=== PATIENT | female | born 1990 | race Caucasian/White ===

== ENCOUNTER 2016-07-04 19:02 | Emergency (ER) | payer OTHER ==
[2016-07-04 19:24] VITALS: BP 103/63; PULSE 107; TEMP 97.6; BMI 26.4
[2016-07-04] MEDS ORDERED: LACTULOSE 20 GM/30 ML UDC (FOR ORAL USE ONLY) PO ONE (20:46)
[2016-07-04] MEDS ORDERED: LACTULOSE 20 GM/30 ML UDC (FOR ORAL USE ONLY) ONE (20:50)
--- NOTE | 2016-07-04 20:51 | PDOC ---
History of Present Illness - General Chief Complaint: Constipation Stated Complaint: CONSTIPATION Time Seen by Provider: 07/04/16 20:28 History Source: Patient Exam Limitations: Language Barrier - History of Present Illness Initial Comments: 07/04/16 20:46 25 yo Female patient who is 24 weeks presents to ED c/o constipation x 4 days. Patient states she tried Milk of Magnesia with no relief. She reports vitamin use. No change in appetite, denies n/v/d, cough, fever, congestion, vaginal bleeding, diff breathing or any other complaints at this time. LNMP December/2015. She denies any other complaints at this time. Timing/Duration: other (4 days.) Severity: moderate Modifying Factors: worse with: cold therapy, eating, immobilization, medication , movement, rest, other Associated Symptoms: denies: denies symptoms, chest pain, cough, diaphoresis, fever/chills, headaches, loss of appetite, malaise, nausea/vomiting, rash, seizure, shortness of breath, syncope, weakness, other Past History - Travel Traveled outside of the country in the last 30 days: No Close contact w/someone who was outside of country & ill: No - Past Medical History Allergies/Adverse Reactions: Allergies Allergy/AdvReac Type Severity Reaction Status Date / Time No Known Allergies Allergy Verified 07/04/16 19:19 Home Medications: Ambulatory Orders Bisacodyl Suppository [Dulcolax Suppository -] 10 mg RC DAILY PRN #7 supp.rect 07/04/16 Mineral Oil Enema [Fleet Mineral Oil Rectal Enema] 133 ml RC DAILY PRN #5 bottle 07/04/16 Pnv95/Ferrous Fumarate/FA [ Caplet] 1 each PO DAILY 07/04/16 Other medical history: denies - Reproductive History (#): 2 Para: 0 Spontaneous : 1 - Psycho/Social/Smoking Cessation Hx Suicidal Ideation: No Smoking History: Never smoked Hx Alcohol Use: No Drug/Substance Use Hx: No Review of Systems - Review of Systems Able to Perform ROS?: Yes Is the patient limited Cambodian proficient: Yes Respiratory: No: Cough, Shortness of Breath Cardiac (ROS): No: Chest Pain ABD/GI: Yes: Constipated. No: Diarrhea, Nausea, Poor Appetite, Poor Fluid Intake, Vomiting : No: Burning, Dysuria Musculoskeletal: Yes: Back Pain Integumentary: No: Bruising, Rash Neurological: No: Headache All Other Systems: Reviewed and Negative *Physical Exam - Vital Signs Last Vital Signs Temp Pulse Resp BP Pulse Ox 97.6 F 107 H 18 103/63 100 07/04/16 19:20 07/04/16 19:20 07/04/16 19:20 07/04/16 19:20 07/04/16 19:20 - Physical Exam General Appearance: Yes: Nourished, Appropriately Dressed HEENT: positive: EOMI, JAYESH, Normal ENT Inspection, Normal Voice, Symmetrical Neck: positive: Trachea midline, Supple Respiratory/Chest: positive: Lungs Clear, Normal Breath Sounds Cardiovascular: positive: Regular Rhythm, Regular Rate Gastrointestinal/Abdominal: positive: Normal Bowel Sounds, Soft, Distended, Other () Lymphatic: negative: Adenopathy Musculoskeletal: positive: Normal Inspection. negative: CVA Tenderness Extremity: positive: Normal Capillary Refill, Normal Inspection, Normal Range of Motion Integumentary: positive: Normal Color, Dry, Warm Neurologic: positive: tester rocket engine II-XII NML intact, Fully Oriented, Alert, Normal Mood/ Affect, Normal Response, Motor Strength 5/5 Medical Decision Making - Medical Decision Making 07/04/16 23:35 Patient without BM after lactulose PO. Will d/c home with enema and suppository. Patient to f/u with PMD or PALLIATIVE CARE PHYSICIAN. *DC/Admit/Observation/Transfer Diagnosis at time of Disposition: Constipated - Discharge Dispostion Disposition: HOME Condition at time of disposition: Stable Admit: No - Prescriptions Prescriptions: Bisacodyl Suppository [Dulcolax Suppository -] 10 mg RC DAILY PRN #7 supp.rect PRN Reason: Constipation Mineral Oil Enema [Fleet Mineral Oil Rectal Enema] 133 ml RC DAILY PRN #5 bottle PRN Reason: Constipation - Patient Instructions Printed Discharge Instructions: Constipation Additional Instructions: FOLLOW UP WITH YOUR PRIMARY CARE PROVIDER THIS WEEK, OR YOUR PALLIATIVE CARE PHYSICIAN. CALL TO SCHEDULE APPOINTMENT. TAKE MEDICATIONS PRESCRIBED. Print Language: WELSH
--- NOTE | 2016-07-04 21:30 | PDOC ---
*Physical Exam - Vital Signs Last Vital Signs Temp Pulse Resp BP Pulse Ox 97.6 F 107 H 18 103/63 100 07/04/16 19:20 07/04/16 19:20 07/04/16 19:20 07/04/16 19:20 07/04/16 19:20 ED Treatment Course - Medications Given in the ED: ED Medications Discontinued Medications Generic Name Dose Route Start Last Admin Trade Name Freq PRN Reason Stop Dose Admin Lactulose 20 gm 07/04/16 20:46 07/04/16 20:52 Cephulac (Oral Use) PO 07/04/16 20:47 20 gm ONCE ONE Administration Medical Decision Making - Medical Decision Making 07/04/16 21:30 agree with care from DANIEL Cho *DC/Admit/Observation/Transfer Diagnosis at time of Disposition: Constipated - Prescriptions Prescriptions: Bisacodyl Suppository [Dulcolax Suppository -] 10 mg RC DAILY PRN #7 supp.rect PRN Reason: Constipation Mineral Oil Enema [Fleet Mineral Oil Rectal Enema] 133 ml RC DAILY PRN #5 bottle PRN Reason: Constipation - Patient Instructions Printed Discharge Instructions: Constipation Additional Instructions: FOLLOW UP WITH YOUR PRIMARY CARE PROVIDER THIS WEEK, OR YOUR FIELD CASHIER. CALL TO SCHEDULE APPOINTMENT. TAKE MEDICATIONS PRESCRIBED. Print Language: IRAQI
== END 2016-07-04 23:55 | disposition home or self-care (01) ==
LOC: JER 19:02
DX: O26.892 Other specified pregnancy related conditions, second trimester (principal); K59.00 Constipation, unspecified; Z3A.24 24 weeks gestation of pregnancy
CPT/HCPCS: 99282-25

== ENCOUNTER 2016-10-24 20:05 | Inpatient (IN) | payer OTHER ==
[2016-10-24] MEDS ORDERED: DINOPROSTONE 10 MG VAGINAL SUPPOSITORY VG ONE (20:30)
[2016-10-24 21:25] LABS: BASOPHIL 0.3 % (0-2.0); EOSINOPHIL 0.2 % (0-4.5); MCH 26.8 pg (25.7-33.7); MCHC 31.8 g/dl (32.0-36.0); MEAN CELL VOLUME 84.4 fl (80-96); MEAN PLT VOLUME 7.2 fl (7.5-11.1); NEUTROPHILS 61.3 % (42.8-82.8); PLATELET COUNT 238 K/MM3 (134-434); RDW 15.8 % (11.6-15.6); WHITE BLOOD COUNT 7.5 K/mm3 (4.0-10.0)
[2016-10-24 21:40] LABS: CALCIUM 8.4 mg/dL (8.5-10.1); CREATININE 0.5 mg/dL (0.55-1.02)
[2016-10-24 21:48] LABS: INR 0.9 (0.82-1.09); PROTHROMBIN TIME (PATIENT) 9.9 SEC (9.98-11.88)
[2016-10-24 21:50] LABS: ACTIVATED PTT 25.7 SECONDS (26.9-34.4)
[2016-10-24 21:58] VITALS: BMI 29.0
--- NOTE | 2016-10-25 00:05 | HP ---
Admitting History and Physical - Admission Chief Complaint: IOL History of Present Illness: 26 y/o P0 at 41 weeks for IOL. [facility]OL at 40.3 and declined. Pt asking for IOL today. She is GBS neg, ct-neg, hiv neg, quant neg. EFW is 8.5 lbs. 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: Alzheimer's, CVA, Dementia, Migraine, Multiple Sclerosis, Peripheral Neuropathy, Parkinson's, Seizure, Syncope, TIA, Vertigo, Other Cardiovascular: No: AFIB, Aneurysm, Aortic Insufficiency, Aortic Stenosis, CAD, CHF, Deep Vein Thrombosis, HTN, Hyperlipdemia, PR, Mitral Insufficiency, Mitral Stenosis, Murmur, Pulmonary Hypertension, Other Pulmonary: No: Asthma, Bronchitis, Cancer, COPD, O2 Dependent, Pneumonia, Previously Intubated, Pulmonary Embolus, Pulmonary Fibrosis, Sleep Apnea, Other Gastrointestinal: No: Ascites, Cancer, Constipation, Crohn's Disease, Diverticulitis, Diverticulosis, Esophageal Varices, Gastritis, GERD, GI Bleed, Hemorrhoids, Hiatal Hernia, Inflamatory Bowel Disease, Irritable Bowel Disease, Pancreatitis, Peptic Ulcer Disease, Ulcerative Colitis, Other Reproductive: No: Ectopic , Endometriosis, Fibroids, PID, Polycystic Ovary Syndrome, Postmenopausal, Other ...LMP: 07/28/15 ...: Yes ...: 3 ...Para: 0 Heme/Onc: No: Anemia, B12 Deficiency, Bleeding Disorder, Cancer, Current Chemotherapy, Current Radiation Therapy, Hemochromatosis, Hypercoaguable State, Myeloproliferative Synd, Sickle Cell Disease, Sickle Cell Trait, Thrombocytopenia, Other Infectious Disease: No: AIDS, C-Diff, Herpes Zoster, HIV, MRSA, STD's, Tuberculosis, VREF, Other Psych: No: Addictions, Anxiety, Bipolar, Depression, Panic, Psychosis, Schizophrenia, Other Musculoskeletal: No: Bursitis, Chronic low back pain, Hemiparesis, Hemiplegia, Osteoarthritis, Paraplegia, Other Rheumatology: No: Fibromyalgia, Gout, Lupus, Rheumatoid Arthritis, Sarcoidosis, Vasculitis, Other ENT: No: Allergic Rhinitis, Sinusitis, Other Endocrine: No: [place]'s Disease, [place]'s Disease, Diabetes Insipidus, Diabetes Mellitus, Hyperparathyroidism, Hyperthyroidism, Hypothyroidism, Osteopenia, SIADH, Other Dermatology: No: Basal Cell, Cellulitis, Eczema, Melanoma, Psoriasis, Squamous Cell, Other - Past Surgical History Past Surgical History: No: None, AAA Repair, AICD, Amputation, Appendectomy, Arthrosocopy, AV Fistula/Graft, Bariatric Surgery, Breast Biopsy, Bypass, CABG, Carotid Endarterectomy, Cataract Removal, Cholecystectomy, Colectomy, Colonoscopy, Colostomy, Craniotomy, , Cystectomy, Hernia Repair, Hysterectomy, Ileal Conduit, Ileosotomy, Joint Replacement, Kidney Transplant, Laminectomy, Liver Transplant, Mastectomy, Nephrectomy, Oopherectomy, Orchiectomy, Permanent Pacemaker, Prostatectomy, Splenectomy, Stent, Thoracotomy , TURP, Tonsillectomy, Tubal Ligation, Upper Endoscopy, Valve Replacement, Vasectomy, Vein Stripping/Ligation - Advance Directives Advance Directives: No: Living Will, Health Care Proxy, DNR, Organ Donor, Tissue Donor, MOLST - Smoking History Smoking history: Never smoked - Alcohol/Substance Use Hx Alcohol Use: No History of Substance Use: denies: None, Cocaine, Heroin, Marijuana, Prescription , Tranquilizers - Social History Usual Living Arrangement: No: Alone, With Spouse, With Parent, With Significant Other, With Child, Assisted Living, [facility], Other Home Medications - Allergies Allergies/Adverse Reactions: Allergies Allergy/AdvReac Type Severity Reaction Status Date / Time No Known Allergies Allergy Verified 07/04/16 19:19 - Home Medications Home Medications: Ambulatory Orders Pnv95/Iron Fum/Folic Acid [ Caplet] 1 each PO DAILY 07/04/16 Review of Systems - Review of Systems Constitutional: denies: No Symptoms, Chills, Diaphoresis, Fever, Lethargy, Loss of Appetite, Malaise, Night Sweats, Unintentional Wgt. Loss, Weakness, Other Eyes: denies: No Symptoms, Blind Spots, Blurred Vision, Double Vision, Eye Pain , Floaters, Photophobia, Recent Change in Vision, Other HENT: denies: No Symptoms, Difficult Swallowing, Ear Discharge, Ear Pain, Epistaxis, Gingival Bleeding, Hearing Loss, Mouth Swelling, Nasal Congestion, Ocular Prosthesis, Throat Pain, Toothache, Ringing in Ears, Other Neck: denies: No Symptoms, Decreased ROM, Lumps, Pain on Movement, Stiffness, Swollen Glands, Tenderness, Other Cardiovascular: denies: No Symptoms, Chest Pain, Edema, Palpitations, Shortness of Breath, Other Respiratory: denies: No Symptoms, Cough, Exercise Intolerance, Hemoptysis, Orthopnea, PND, Snoring, SOB, SOB on Exertion, Wheezing, Other Gastrointestinal: denies: No Symptoms, Abdominal Pain, Bloating, Constipation, Diarrhea, Dysphagia, Indigestion, Melena, Nausea, Rectal Bleeding, Vomiting, Vomiting Blood, Other Genitourinary: denies: No Symptoms, Burning, Discharge, Dysuria, Flank Pain, Frequency, Hematuria, Incontinence, Lesions, Menses, Pain, Testicular Mass, Testicular Pain, Testicular Swelling, Urgency, Vaginal Bleeding, Other Breasts: denies: No Symptoms Reported, See HPI, Breast Implants, Discharge from Nipple, Lumps, Pain, Skin Changes, Other Musculoskeletal: denies: No Symptoms, Back Pain, Crepitus, Decreased ROM, Extremity Pain, Joint Pain, Joint Swelling, Muscle Pain, Muscle Cramps, Muscle Weakness, Other Integumentary: denies: No Symptoms, Blister, Bruising, Change in Color, Eczema, Erythema, Incision, Lesions, Lump, Pallor, Pruritis, Rash, Wound, Other Neurological: denies: No Symptoms, Change in LOC, Change in Speech, Confusion, Dizziness, Headache, Incoordination, Numbness, Parasthesia, Pre-Existing Deficit , Seizure, Syncope, Tremors, Unsteady Gait, Weakness, Other Endocrine: denies: No Symptoms, Excessive Sweating, Flushing, Increased Hunger, Increased Thirst, Intolerance to Cold, Intolerance to Heat, Unexplained Weight Gain, Unexplained Weight Loss, Other Psychiatric: denies: No Symptoms, Altered Sleep Pattern, Anxiety, Depression, Hallucinations, Panic, Paranoia, Suicidal, Other Physical Examination Vital Signs: Vital Signs Temperature 98.1 F 10/24/16 22:00 Pulse Rate 88 10/24/16 23:00 Respiratory Rate 20 10/24/16 23:00 Blood Pressure 123/69 10/24/16 23:00 O2 Sat by Pulse Oximetry (%) Constitutional: Yes: Well Nourished Eyes: Yes: WNL HENT: Yes: WNL Neck: Yes: WNL Cardiovascular: Yes: WNL Respiratory: Yes: WNL Gastrointestinal: Yes: WNL ...Rectal Exam: Yes: WNL Renal/: Yes: WNL Breast(s): Yes: WNL Musculoskeletal: Yes: WNL Extremities: Yes: WNL Integumentary: Yes: WNL Neurological: Yes: WNL ...Motor Strength: WNL Psychiatric: Yes: WNL Labs: CBC, BMP 10/24/16 21:00 10/24/16 21:00 Assessment/Plan admit labs cervidil...r/b given and will proceed
--- NOTE | 2016-10-25 00:08 | PN ---
Progress Note (short form) - Note Progress Note: cervidil placed in post fornix 1cm/-3/50%
[2016-10-25] MEDS: ELECTROLYTE-148 SOLN 1,000 ML IV SCH ×3 (01:00→18:46)
[2016-10-25] MEDS ORDERED: DINOPROSTONE 10 MG VAGINAL SUPPOSITORY VG ONE (12:00)
--- NOTE | 2016-10-25 12:28 | PN ---
Progress Note (short form) - Note Progress Note: 26 yrs 41 weeks, edc 10/17/16 s/p cervidil inserted by Dr Quintanilla for induction of labor at midnight . cervidil was supposed to be removed at 12.00 noon , when I checked her , I did not find cervidil in vagina , patient does not recall if she saw cervidil had fallen down . pelvic exam cx 1-2 cm/50 %/mi /vx-3 monitor UC q8-10 min, irregular, FHR 140-150 cat-1 Selected Entries 10/25/16 10/25/16 10:00 12:00 Temperature 98.1 F Pulse Rate 84 Blood Pressure 118/[address] cervidil induction
--- NOTE | 2016-10-25 15:06 | PN ---
Progress Note (short form) - Note Progress Note: nurse notified cervidil felldown at 14.50 hr while pt was in the bathroom UC are irregular , fhr cat-1 . cx 3 cm/60%/mi/vx-3/pelvis ad Selected Entries 10/25/16 14:00 Temperature 98.2 F Pulse Rate 81 Blood Pressure 105/53 plan Pitocin Induction
[2016-10-25] MEDS ORDERED: OXYTOCIN 15 UNITS/ LR 250 ML 250 ML IVPB SCH (15:15)
--- NOTE | 2016-10-25 17:57 | PN ---
Progress Note, Labor Vaginal Exam #1 Labor Exam Date: 10/25/16 Labor Exam Time: 17:45 Heart Rate (range): 140 Dilatation: 4-5 Effacement (%): 90 Amniotic Membrane Status: Ruptured (AROM, clear, moderate amount) Presentation: Vertex/Position (op position) Station: -2 Remarks: uc dysfunctional 1-2-4 min fhr cat-1 pitocin 2ml/hr. pt requests for epidural Selected Entries 10/25/16 10/25/16 16:00 17:00 Temperature 98.0 F Pulse Rate 97 H 89 Blood Pressure 107/64 Blood Pressure 72 Mean Vaginal Exam #2 Labor Exam Date: 10/25/16 Labor Exam Time: 19:59 Heart Rate (range): 130-140 Dilatation: 6 Effacement (%): 90 Amniotic Membrane Status: Ruptured Presentation: Vertex/Position (OP, Ant asynclytism) Station: -2 (scalp electrode applied) Remarks: 19.42 late decl , bradycardia to 90 bpm for 4 min, , fhr cat-2, pitocin was d/ carmen, pt turned to Lt side, O2 given UC dysfunctional 1-2-4-5 min epidural was given at 18.[address] trial of labor FhR reassuring, will start pitocin again Selected Entries 10/25/16 10/25/16 18:35 19:00 Temperature 98.5 F Pulse Rate 97 H Blood Pressure 100/77 Laboratory Tests 10/24/16 10/24/16 10/24/16 21:00 21:00 21:00 WBC 7.5 Hgb 10.2 L D Hct 32.0 L D Plt Count 238 Neutrophils % 61.3 D Lymphocytes % 31.0 D INR 0.90 PTT (Actin FS) 25.7 L Sodium 140 Potassium 3.6 Chloride 105 Carbon Dioxide 24 BUN 8 D Creatinine 0.5 L D Random Glucose 118 H RPR Titer 10/24/16 21:00 WBC Hgb Hct Plt Count Neutrophils % Lymphocytes % INR PTT (Actin FS) Sodium Potassium Chloride Carbon Dioxide BUN Creatinine Random Glucose RPR Titer Nonreactive Vaginal Exam #3 Labor Exam Date: 10/25/16 Labor Exam Time: 22:40 Heart Rate (range): 135-150 Dilatation: 7 Effacement (%): 90 Amniotic Membrane Status: Ruptured Presentation: Vertex/Position Station: -1 (-1/0) Remarks: fhr cat-1 UC dysfunctional 1-2-4 min pit 6ml/hr ct trial of labor Vaginal Exam #4 Labor Exam Date: 10/26/16 Labor Exam Time: 00:20 Heart Rate (range): 140 Dilatation: 8-9 Amniotic Membrane Status: Ruptured Presentation: Vertex/Position Station: +1 Remarks: fhr cat-2, variable decel down to 70 bpm x 2min , position changed uc 1-2 min Vaginal Exam #5 Labor Exam Date: 10/26/16 Labor Exam Time: 02:20 Heart Rate (range): 120-140 Dilatation: rim Amniotic Membrane Status: Ruptured Presentation: Vertex/Position (caput) Station: +1 (+1/+2) Remarks: fhr cat-1 uc 1-2-3 min Selected Entries 10/26/16 10/26/16 10/26/16 01:00 01:15 01:30 Temperature 97.9 F Pulse Rate 88 84 Blood Pressure 121/82 126/65 10/26/16 01:45 Temperature Pulse Rate 83 Blood Pressure 119/46 ct trial of labor Vaginal Exam #6 Labor Exam Date: 10/26/16 Labor Exam Time: 04:20 Heart Rate (range): 136 Dilatation: 9 Effacement (%): 100 Amniotic Membrane Status: Ruptured Presentation: Vertex/Position Station: +1 (+1/+2, caput, moulding) Remarks: fhr cat-1 uc q2 min Selected Entries 10/26/16 10/26/16 02:00 03:00 Temperature 97.9 F 98.7 F Pulse Rate 79 Blood Pressure 114/64 protracted active phase of labor failure of descent & dilatation Plan : stop pitocin delivery by c/section
[2016-10-25] MEDS ORDERED: ELECTROLYTE-148 SOLN 500 ML IV ONE ×2 (18:00→18:30)
[2016-10-25] MEDS ORDERED: FENTANYL/BUPIVACAINE/NS/PF - PCEA - 50 ML DISP.SYRIN EP SCH (18:30)
[2016-10-26] MEDS: ELECTROLYTE-148 SOLN 1,000 ML IV SCH (01:00)
[2016-10-26] MEDS ORDERED: CITRIC ACID/SODIUM CITRATE 30 ML UNIT-DOSE CUP PO ONE (04:30)
[2016-10-26] MEDS ORDERED: ONDANSETRON 4 MG/2 ML VIAL IVPB PRN (05:38)
[2016-10-26] MEDS ORDERED: METHYLERGONOVINE MALEATE 0.2 MG/1 ML AMP IM PRN (05:43)
[2016-10-26 05:45] LABS: ARTERIAL BLOOD GAS pH 7.29 (7.35-7.45)
[2016-10-26 05:46] LABS: ARTERIAL BLOOD GAS BASE EXCESS -2.6 meq/l (-2-2); ARTERIAL BLOOD GAS HCO3 24.3 meq/L (22-26)
[2016-10-26 05:47] LABS: ARTERIAL BLD GAS O2 SATURATION 10.7 % (90-98.9); ARTERIAL BLOOD GAS PO2 11.6 mmHg (80-100)
[2016-10-26 05:50] LABS: VENOUS BLOOD GAS HCO3 21.1 meq/L (19-25)
[2016-10-26 05:51] LABS: VENOUS PH 7.35 (7.32-7.42)
--- NOTE | 2016-10-26 06:01 | PN ---
Delivery - Delivery Section: Primary, Low Flap Transverse (10/26/16 indication 41 weeks, failure to progress&dilatation & descent)) EBL (cc): 600 (200 ml edward output blood stained ) Delivery, Single - Stages of Labor Date 1st Stage Initiatied: 10/25/16 Time 1st Stage Initiated: 15:00 Date of Delivery: 10/26/16 Time of Delivery: 05:06 Date Placenta Delivered: 10/26/16 Time Placenta Delivered: 05:08 Placenta: Yes: Manual Removal, Uterine Exploration - Condition of Plant Protection Supervisor/Grid Trimmer Present: Yes Name: Tre Berkowitz Gender: Female Weight: 8 lb 6 oz Position: Right, OP Total Hours ROM (Hrs/Mins): 11 hrs, 39 min - 1 Minute Total Score: 9 5 Minutes Total Score: 9 - [place] Feeding Plan Initial Plan: Elected not to breastfeed exclusively throughout hospitalization Remarks - Remarks Remarks: 26 yrs 41 weeks iup, admitted by Dr Quintanilla on 10/24 for induction of labor gbs neg, care at 2, [facility] Cervidil induction 10/24/16 cervidil had fallen down , 2nd cervidil inserted 10/25/16, fell down after 3 hrs Pitocin induction was begun on 10/25/16 protracted active phase of labor was noted After 9 cm +1/+2 station for 3 hrs moulding, caput formation,. Intraop 2 gm IV Ancef was given intraop course was uneventful
--- NOTE | 2016-10-26 06:16 | OP ---
Operative Note - Note: Operative Date: 10/26/16 Pre-Operative Diagnosis: 41 weeks, failure to progress( dilatation & descent ) Operation: primary low flap transverse c/section Findings: 5.06 am/Baby Girl / ROP/ 9/9 /Wt 8'6" Both tubes & ovaries normal Dr Berkowitz Inner Diameter Grinder Tool was present in the room Surgeon: Sara Miles Steaming Cabinet Tender: Pranav Gilbert Anesthesiologist/IN CLASSROOM TUTOR: Anton Alba Anesthesia: Epidural Estimated Blood Loss (mls): 600 Drains, Volume Out (mls): 200 (edward output blood stained) Fluid Volume Replaced (mls): 1,000 (Iv Ancef 2 gmm prior to incision ) Operative Report Dictated: Yes
[2016-10-26] MEDS: D5W-LR W/ 20 UNITS OXYTOCIN 1,000 ML IV SCH ×2 (07:30→16:00)
--- NOTE | 2016-10-26 08:53 | OP ---
DATE OF OPERATION: 10/26/2016 PREOPERATIVE DIAGNOSIS: A 41-week , failure to progress in labor. OPERATION DONE: Primary low flap transverse section. SURGEON: Sara Miles MD HADOOP JAVA DEVELOPER SURGEON: Pranav Gilbert MD ANESTHESIOLOGIST: Anton Alba MD ANESTHESIA: Epidural. FINDINGS: This is a 26-year-old 3, para 0-0-2-0, with 41-week , was admitted on October 24 and Cervidil induction was started and 2nd Cervidil was put on October 25. Both the Cervidil had fallen down and then Pitocin induction was started. Patient dilated up to 9 cm. She remained 9 cm for 3 hours and then there was no descensus beyond +1 to +2 station, molding and caput were noted, so it was decided to deliver via . PROCEDURE: Abdomen was shaved, prepped. Vincent catheter was already in. Epidural anesthesia was reinforced. The analgesia was converted into the anesthesia and patient was taken to the operating room table. Abdomen was painted and draped in usual manner. Then, Pfannenstiel incision was made. The skin, subcutaneous tissue, anterior rectus sheath were incised transversely. Bleeding points were clamped and cauterized. Rectus muscle was from the rectus sheath. Parietal peritoneum was opened vertically bladder peritoneum was identified. It was incised transversely. Lower uterine segment was incised transversely. Amniotic fluid was clear and the baby was delivered from ROP position at 5:06 a.m. Baby's was 9, 9, and the cord was clamped and cord blood was collected. Cord blood gases were collected, too, and the placenta was removed completely with the membranes, sent for the pathology examination. Baby girl and the weight was [address] Berkowitz, distribution supervisor, was present in the room. Then, uterine incision was closed in 2 layers. First layer was a continuous locking with a Biosyn suture. Second layer was a continuous intermittent locking with a Biosyn suture. Hemostasis was verified and then bladder peritoneum also was closed with a Biosyn suture. Both tubes and ovaries were inspected and irrigation was done. Sponge, instrument, needle counts were correct and closure of the abdomen was done. Parietal peritoneum was closed with a Vicryl 0 suture. Muscles were approximated together with interrupted sutures. Anterior rectus sheath was closed with a Vicryl 0 continuous suture. Hemostasis was verified and then subcutaneous tissue bleeding was noted and interrupted sutures were taken in subcutaneous tissue with Vicryl 0 suture. The skin was approximated with brandon. A pressure dressing was given. Blood clots were removed from the vagina and patient tolerated procedure well. She was transferred to the recovery room in stable condition. Estimated blood loss was 600 mL. Urine output was 200 mL intraoperative and was blood stained, but it was yesika colored at the end of the procedure. IV Ancef 2 g prior to the incision was given. Teena [id number]
[2016-10-26] MEDS ORDERED: CEFAZOLIN (PRE-DOCKED) 50 ML IVPB ONE ×2 (09:35→17:29)
[2016-10-26] MEDS: CEFAZOLIN 1 GM/D5W 50 ML IVPB SCH ×2 (09:40→17:34)
[2016-10-26] MEDS ORDERED: oxyCODONE HCL 5 MG TABLET PO PRN ×2 (22:00)
[2016-10-26] MEDS: IBUPROFEN 800 MG/8 ML IJ IVPB PRN (22:58)
[2016-10-27] MEDS ORDERED: CEFAZOLIN (PRE-DOCKED) 50 ML IVPB ONE (01:17)
[2016-10-27] MEDS: CEFAZOLIN 1 GM/D5W 50 ML IVPB SCH (01:25)
[2016-10-27] MEDS ORDERED: BISACODYL 10 MG SUPP.RECT RC PRN (05:43)
[2016-10-27] MEDS: IBUPROFEN 800 MG/8 ML IJ IVPB PRN (06:32)
--- NOTE | 2016-10-27 07:57 | PN ---
Post Progress Note Post Day: 1 Type of Delivery: Primary C/S Vital Signs: Vital Signs Temperature 98.0 F 10/27/16 01:41 Pulse Rate 79 10/27/16 01:41 Respiratory Rate 20 10/27/16 06:00 Blood Pressure 93/50 10/27/16 01:41 O2 Sat by Pulse Oximetry (%) 98 10/26/16 07:30 Breast Exam: Yes: Soft Uterus: Yes: Fundus Firm Incision: Yes: Dressing dry and intact Abdomen/GI: Yes: Abdomen soft Lochia: Yes: Rubra Lochia, amount: Small Extremities: Yes: Calves non-tender Perineum: Yes: Intact - Labs Labs: CBC WBC 7.5 K/mm3 (4.0-10.0) 10/24/16 21:00 RBC 3.79 M/mm3 (3.60-5.2) 10/24/16 21:00 Hgb 10.2 GM/dL (10.7-15.3) L D 10/24/16 21:00 Hct 32.0 % (32.4-45.2) L D 10/24/16 21:00 MCV 84.4 fl (80-96) 10/24/16 21:00 MCHC 31.8 g/dl (32.0-36.0) L 10/24/16 21:00 RDW 15.8 % (11.6-15.6) H 10/24/16 21:00 Plt Count 238 K/MM3 (134-434) 10/24/16 21:00 MPV 7.2 fl (7.5-11.1) L 10/24/16 21:00 Neutrophils % 61.3 % (42.8-82.8) D 10/24/16 21:00 Lymphocytes % 31.0 % (8-40) D 10/24/16 21:00 Monocytes % 7.2 % (3.8-10.2) 10/24/16 21:00 Eosinophils % 0.2 % (0-4.5) 10/24/16 21:00 Basophils % 0.3 % (0-2.0) 10/24/16 21:00 Assessment/Plan as above oob' reg diet pain control
[2016-10-27 08:41] LABS: BASOPHIL 0.5 % (0-2.0); EOSINOPHIL 0.5 % (0-4.5); MEAN CELL VOLUME 84.3 fl (80-96); MEAN PLT VOLUME 7.1 fl (7.5-11.1); NEUTROPHILS 77.4 % (42.8-82.8); PLATELET COUNT 182 K/MM3 (134-434); RDW 16.3 % (11.6-15.6)
[2016-10-27] MEDS: SIMETHICONE 80 MG TAB.CHEW (FP) PO PRN ×2 (09:41→18:13)
[2016-10-27] MEDS: PRENATAL VITAMINS W/ FOLIC ACID TABLET (FP) PO SCH (09:42)
[2016-10-27] MEDS: ENOXAPARIN NA (PORCINE) 40 MG/0.4 ML DISP.SYRIN SQ SCH (09:42)
--- NOTE | 2016-10-27 09:51 | PN ---
Progress Note (short form) - Note Progress Note: Anesthesia post op note. POD#1 S/P with spinal. pat seen and examined, VSS. OOB this morning. No post anesthesia complications. Signing off.
[2016-10-27] MEDS: IBUPROFEN 600 MG TABLET (FP) PO PRN (18:13)
[2016-10-27] MEDS: ACETAMINOPHEN 325 MG TABLET (FP) PO PRN (18:14)
[2016-10-27] MEDS: SENNOSIDES/DOCUSATE COMBO (SENNA PLUS) TABLET (UD) PO PRN (21:28)
[2016-10-27] MEDS: FERROUS SO4 325 MG TABLET (FP) PO SCH (21:28)
[2016-10-28] MEDS: SIMETHICONE 80 MG TAB.CHEW (FP) PO PRN ×3 (03:49→21:16)
[2016-10-28] MEDS: ACETAMINOPHEN 325 MG TABLET (FP) PO PRN ×3 (03:49→21:17)
[2016-10-28] MEDS: IBUPROFEN 600 MG TABLET (FP) PO PRN ×3 (03:50→21:17)
[2016-10-28] MEDS: FERROUS SO4 325 MG TABLET (FP) PO SCH ×2 (09:12→21:16)
[2016-10-28] MEDS: PRENATAL VITAMINS W/ FOLIC ACID TABLET (FP) PO SCH (09:12)
[2016-10-28] MEDS: ENOXAPARIN NA (PORCINE) 40 MG/0.4 ML DISP.SYRIN SQ SCH (09:12)
[2016-10-28] MEDS: SENNOSIDES/DOCUSATE COMBO (SENNA PLUS) TABLET (UD) PO PRN (21:16)
--- NOTE | 2016-10-28 23:51 | PN ---
Post Progress Note Post Day: 2 Type of Delivery: Primary C/S Vital Signs: Vital Signs Temperature 99.0 F 10/28/16 21:11 Pulse Rate 74 10/28/16 21:11 Respiratory Rate 20 10/28/16 21:11 Blood Pressure 124/72 10/28/16 21:11 O2 Sat by Pulse Oximetry (%) 98 10/26/16 07:30 Breast Exam: Yes: Soft Uterus: Yes: Fundus Firm Abdomen/GI: Yes: Abdomen soft Lochia: Yes: Rubra Lochia, amount: Small Extremities: Yes: Calves non-tender Perineum: Yes: Intact Activity: Ambulating - Labs Labs: CBC WBC 11.0 K/mm3 (4.0-10.0) H D 10/27/16 07:35 RBC 3.39 M/mm3 (3.60-5.2) L 10/27/16 07:35 Hgb 9.1 GM/dL (10.7-15.3) L D 10/27/16 07:35 Hct 28.6 % (32.4-45.2) L 10/27/16 07:35 MCV 84.3 fl (80-96) 10/27/16 07:35 MCHC 32.0 g/dl (32.0-36.0) 10/27/16 07:35 RDW 16.3 % (11.6-15.6) H 10/27/16 07:35 Plt Count 182 K/MM3 (134-434) D 10/27/16 07:35 MPV 7.1 fl (7.5-11.1) L 10/27/16 07:35 Neutrophils % 77.4 % (42.8-82.8) D 10/27/16 07:35 Lymphocytes % 15.5 % (8-40) D 10/27/16 07:35 Monocytes % 6.1 % (3.8-10.2) 10/27/16 07:35 Eosinophils % 0.5 % (0-4.5) D 10/27/16 07:35 Basophils % 0.5 % (0-2.0) 10/27/16 07:35 Assessment/Plan oob reg diet continue care culture seen--no sxs
--- NOTE | 2016-10-29 06:33 | PN ---
Post Progress Note - Subjective Subjective: no fever or chills, no temp Post Day: 3 Type of Delivery: Primary C/S Vital Signs: Vital Signs Temperature 99.0 F 10/28/16 21:11 Pulse Rate 74 10/28/16 21:11 Respiratory Rate 20 10/28/16 21:11 Blood Pressure 124/72 10/28/16 21:11 O2 Sat by Pulse Oximetry (%) 98 10/26/16 07:30 Breast Exam: Yes: Soft Uterus: Yes: Fundus Firm Incision: Yes: Dressing dry and intact Abdomen/GI: Yes: Abdomen soft Lochia: Yes: Rubra Lochia, amount: Small Extremities: Yes: Calves non-tender Perineum: Yes: Intact - Labs Labs: CBC WBC 11.0 K/mm3 (4.0-10.0) H D 10/27/16 07:35 RBC 3.39 M/mm3 (3.60-5.2) L 10/27/16 07:35 Hgb 9.1 GM/dL (10.7-15.3) L D 10/27/16 07:35 Hct 28.6 % (32.4-45.2) L 10/27/16 07:35 MCV 84.3 fl (80-96) 10/27/16 07:35 MCHC 32.0 g/dl (32.0-36.0) 10/27/16 07:35 RDW 16.3 % (11.6-15.6) H 10/27/16 07:35 Plt Count 182 K/MM3 (134-434) D 10/27/16 07:35 MPV 7.1 fl (7.5-11.1) L 10/27/16 07:35 Neutrophils % 77.4 % (42.8-82.8) D 10/27/16 07:35 Lymphocytes % 15.5 % (8-40) D 10/27/16 07:35 Monocytes % 6.1 % (3.8-10.2) 10/27/16 07:35 Eosinophils % 0.5 % (0-4.5) D 10/27/16 07:35 Basophils % 0.5 % (0-2.0) 10/27/16 07:35 Assessment/Plan oob reg diet monitor for fevers no sym depsite pos culture
[2016-10-29] MEDS: IBUPROFEN 600 MG TABLET (FP) PO PRN ×3 (06:54→18:10)
[2016-10-29] MEDS: SIMETHICONE 80 MG TAB.CHEW (FP) PO PRN ×3 (06:54→18:11)
[2016-10-29] MEDS: ACETAMINOPHEN 325 MG TABLET (FP) PO PRN ×3 (06:55→18:10)
[2016-10-29 07:12] LABS: BASOPHIL 0.4 % (0-2.0); EOSINOPHIL 0.6 % (0-4.5); MCH 26.9 pg (25.7-33.7); MCHC 31.9 g/dl (32.0-36.0); MEAN CELL VOLUME 84.5 fl (80-96); MEAN PLT VOLUME 6.9 fl (7.5-11.1); NEUTROPHILS 56.1 % (42.8-82.8); PLATELET COUNT 189 K/MM3 (134-434); RDW 16.3 % (11.6-15.6); WHITE BLOOD COUNT 5.9 K/mm3 (4.0-10.0)
[2016-10-29] MEDS: FERROUS SO4 325 MG TABLET (FP) PO SCH ×2 (09:20→21:52)
[2016-10-29] MEDS: PRENATAL VITAMINS W/ FOLIC ACID TABLET (FP) PO SCH (09:20)
[2016-10-29] MEDS: ENOXAPARIN NA (PORCINE) 40 MG/0.4 ML DISP.SYRIN SQ SCH (09:21)
--- NOTE | 2016-10-29 10:34 | PN ---
Post Progress Note - Subjective Subjective: no c/o pain . voiding without difficulty Post Day: 3 Type of Delivery: Primary C/S Vital Signs: Vital Signs Temperature 98.7 F 10/29/16 07:15 Pulse Rate 73 10/29/16 07:15 Respiratory Rate 20 10/29/16 07:15 Blood Pressure 117/62 10/29/16 07:15 O2 Sat by Pulse Oximetry (%) 98 10/26/16 07:30 Breast Exam: Yes: Soft. No: Engorged (BF ) Uterus: Yes: Fundus Firm, Fundus below umbilicus, Non-tender Incision: Yes: [place] intact. No: Sutures intact, Oozing Abdomen/GI: Yes: Abdomen soft, Passing flatus (bm done ). No: Abdominal Distention, Tender Lochia: Yes: Rubra Lochia, amount: Moderate Extremities: Yes: Calves non-tender, Edema Perineum: Yes: Intact Activity: Ambulating - Labs Labs: CBC WBC 5.9 K/mm3 (4.0-10.0) D 10/29/16 06:30 RBC 3.18 M/mm3 (3.60-5.2) L 10/29/16 06:30 Hgb 8.6 GM/dL (10.7-15.3) L 10/29/16 06:30 Hct 26.9 % (32.4-45.2) L 10/29/16 06:30 MCV 84.5 fl (80-96) 10/29/16 06:30 MCHC 31.9 g/dl (32.0-36.0) L 10/29/16 06:30 RDW 16.3 % (11.6-15.6) H 10/29/16 06:30 Plt Count 189 K/MM3 (134-434) 10/29/16 06:30 MPV 6.9 fl (7.5-11.1) L 10/29/16 06:30 Neutrophils % 56.1 % (42.8-82.8) D 10/29/16 06:30 Lymphocytes % 37.3 % (8-40) D 10/29/16 06:30 Monocytes % 5.6 % (3.8-10.2) 10/29/16 06:30 Eosinophils % 0.6 % (0-4.5) 10/29/16 06:30 Basophils % 0.4 % (0-2.0) 10/29/16 06:30 Microbiology 10/26/16 05:09 Intrauterine Gram Stain - Final 10/26/16 05:09 Intrauterine Wound Culture - Final Strep Agalactiae Group B Assessment/Plan anemia. intrauterine culture positive for GBS , though vaginal culture was neg for GBS pt has been afebrile, asymptomatic, ut non tender & lochia no odor, hence 24 hr antibiotics Ancef with 2gm loading 1st dose in my opinion ia appropriate . 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 counselled for anemia discharge tomorrow.
[2016-10-29 22:24] VITALS: PULSE 78
[2016-10-30] MEDS: SIMETHICONE 80 MG TAB.CHEW (FP) PO PRN ×2 (01:24→09:07)
[2016-10-30] MEDS: ACETAMINOPHEN 325 MG TABLET (FP) PO PRN ×2 (01:24→09:02)
[2016-10-30] MEDS: IBUPROFEN 600 MG TABLET (FP) PO PRN ×2 (01:24→09:01)
--- NOTE | 2016-10-30 08:16 | DS ---
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 Vital Signs: Vital Signs Temperature 98 F 10/29/16 22:00 Pulse Rate 78 10/29/16 22:00 Respiratory Rate 18 10/29/16 22:00 Blood Pressure 112/58 10/29/16 22:00 O2 Sat by Pulse Oximetry (%) 98 10/26/16 07:30 Constitutional: Yes: Well Nourished Eyes: Yes: Conjunctiva Clear HENT: Yes: Atraumatic Neck: Yes: Supple, Trachea Midline Cardiovascular: Yes: Regular Rate and Rhythm Respiratory: Yes: Regular, CTA Bilaterally Gastrointestinal: Yes: Normal Bowel Sounds External Genitalia: Yes: Normal Vaginal Exam: Yes: Normal Cervix: Yes: Normal Integumentary: Yes: WNL Wound/Incision: Yes: Well Approximated Neurological: Yes: Alert, Oriented ...Motor Strength: WNL Psychiatric: Yes: Alert, Oriented Labs: CBC, BMP 10/29/16 06:30 10/24/16 21:00 Delivery - Delivery Section: Primary, Low Flap Transverse (10/26/16 indication 41 weeks, failure to progress&dilatation & descent)) Type of Anesthesia: Epidural Episiotomy/Laceration: None EBL (cc): 600 (200 ml edward output blood stained ) Delivery, Single - Stages of Labor Date 1st Stage Initiatied: 10/25/16 Time 1st Stage Initiated: 15:00 Date of Delivery: 10/26/16 Time of Delivery: 05:06 Time Placenta Delivered: 05:08 Placenta: Yes: Manual Removal, Uterine Exploration - Condition of Infant 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 Present: Yes Name: Tre Berkowitz Gender: Female Weight: 8 lb 6 oz Position: Right, OP Total Hours ROM (Hrs/Mins): 11 hrs, 39 min - 1 Minute Total Score: 9 5 Minutes Total Score: 9 - [place] Feeding Plan Initial Plan: Elected not to breastfeed exclusively throughout hospitalization Discharge Summary Reason For Visit: INDUCTION OF LABOR Current Active Problems Anemia (Acute) Delivery by emergency section (Acute) Elective induction of labor planned (Acute) Failure to progress in first stage of labor (Acute) Post term at 41 weeks gestation (Acute) Procedures: Principal: Primary Hospital Course: Routine Post op care Condition: Stable - Instructions Diet, Activity, Other Instructions: Post Instructions DIET: Continue good diet high in protein, calcium, and iron rich foods. Drink at least eight (8) glasses of water daily in addition to other fluids. ct, High iron diet Regular diet MEDICATIONS: Continue vitamins and iron as previously directed. Motrin and Tylenol may be taken for minor discomfort. ACTIVITY: Mild to moderate exercise may be started in two (2) weeks. Take frequent rest periods. Resume normal activity after six (6) week check up. WOUND CARE OF OPERATIVE SITE: Continue use of perineal bottle until vaginal discharge stops. Keep area clean. Shower daily. Keep abdominal wound dry. Report any drainage or redness to physician. Tub baths, tampons and douches are not permitted for [address] Breast feeding & or Bottle feeding BREAST CARE: (For those that are not ): If engorgement occurs: Wear tight fitting bra. Take Tylenol or Motrin for pain. Apply cold packs (ice in bags to each breast ) FAMILY PLANNING: There are many control alternatives to pursue and they should be discussed at your first office visit. You may resume sexual activity after your six (6) week check up. (Remember, breast feeding is not a contraceptive) NEXT PHYSICIAN APPOINTMENT: Be certain to call for a one (1) week appointment, unless otherwise directed. Call Clinic or got to Emergency Dept if you have any of the following: Heavy vaginal bleeding Painful urination Leg pain Unusual odor noted to vaginal bleeding High fever Red streaking noted on breast Referrals: Sara Miles MD [Staff Physician] - Disposition: HOME - Home Medications Comprehensive Discharge Medication List: Ambulatory Orders Vit Calc,Iron,Folic [ Vitamins] 1 each PO DAILY 10/25/16 Acetaminophen [Tylenol .Regular Strength -] 650 mg PO Q4H PRN #0 tablet Ferrous Sulfate [Feosol] 325 mg PO BID #60 tab 10/29/16 Ibuprofen [Motrin -] 600 mg PO Q4H PRN #30 tablet 10/29/16 Vitamins (Sjr) - 1 tab PO DAILY tablet 10/29/16
[2016-10-30] MEDS: FERROUS SO4 325 MG TABLET (FP) PO SCH (09:48)
[2016-10-30] MEDS: PRENATAL VITAMINS W/ FOLIC ACID TABLET (FP) PO SCH (09:48)
[2016-10-30] MEDS: ENOXAPARIN NA (PORCINE) 40 MG/0.4 ML DISP.SYRIN SQ SCH (09:48)
[2016-10-30 12:56] VITALS: BP 113/61; TEMP 97.9
--- NOTE | 2016-10-30 12:56 | PATH ---
Surgical Pathology Report Patient Name: NAVJOT GARCIA Med. Rec. 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 Specimen(s) Received PLACENTA Clinical History 41 weeks gestation, post dates Failure to progress, failure to descend and dilatation Final Diagnosis PLACENTA, DELIVERY: FOCALLY DISRUPTED THIRD TRIMESTER PLACENTA WITH THREE VESSEL UMBILICAL CORD AND UNREMARKABLE PLACENTAL MEMBRANES. Electronically Signed Armando Vann M.D. Gross Description The specimen is received fresh labeled placenta and is a 420 gram, 18.0 x 14.5 x 3.0 cm. placenta with attached membranes and umbilical cord. The attached membranes are morales, translucent with focal opacities and insert marginally. The umbilical cord measures 15 cm. in length and averages 0.9 cm. in diameter. The cord inserts eccentrically, 4 cm. to the nearest margin. No true knots or strictures are identified. Cut surface of the umbilical cord reveals 3 vessels. The surface is brooks blue with moderate fibrin deposition and appropriate caliber vessels. The maternal surface is red-brown with focal defects. Sectioning reveals red-brown, spongy parenchyma. No lesions are identified. Machining Manager sections are submitted in three cassettes as follows: 1- membrane rolls and umbilical cord; 2-3- full thickness sections of placenta. 10/29/201610/29/2016
--- NOTE | 2016-10-30 19:12 | PN ---
Progress Note (short form) - Note Progress Note: po day#4 pain scale 4/10. breast not engorged, pt not BF Selected Entries 10/30/16 09:00 Temperature 97.9 F Pulse Rate 78 Blood Pressure 113/61 Laboratory Tests 10/29/16 06:30 WBC 5.9 D Hgb 8.6 L Hct 26.9 L Plt Count 189 p/a brandon removed , wound healing satisfactory . edges well approximated, no oozing .. steri strips applied plan anemia counselled she will rtc in 2 weeks
== END 2016-10-30 12:20 | disposition home or self-care (01) | DRG 540 ==
LOC: JLDR 20:05 → J3W 10-26 08:09
PROVIDERS: ADMIT Obstetrics & Gynecology; ATTEND Obstetrics & Gynecology
PROC: 10D00Z1 Extraction of Products of Conception, Low, Open Approach (ICD-10-PCS; principal; 2016-10-26)
DX: O62.0 Primary inadequate contractions (principal); O48.0 Post-term pregnancy; O99.02 Anemia complicating childbirth; D64.9 Anemia, unspecified; Z3A.41 41 weeks gestation of pregnancy; Z37.0 Single live birth
CPT/HCPCS: 36415; 36600; 80048; 82803; 85025; 85610; 85730; 86593; 86850; 86900; 86901; 87070; 87186; 87205; 88307-TC; 94010

== ENCOUNTER 2022-03-13 14:21 | Emergency (ER) | payer OTHER ==
[2022-03-13 14:53] VITALS: BP 119/75; PULSE 85; RESP 17; TEMP 98.1; BMI 28.7
[2022-03-13] MEDS ORDERED: ACETAMINOPHEN 500 MG TABLET (FP) PO ONE (16:55)
[2022-03-13] MEDS ORDERED: ACETAMINOPHEN 325 MG TABLET (FP) ONE (17:22)
[2022-03-13 17:57] LABS: BASO % 0.3 % (0-2.0); EOS % 0.1 % (0-4.5); HEMATOCRIT 38.8 % (32.4-45.2); HEMOGLOBIN 13.4 GM/dL (10.7-15.3); LYMPH % 32.8 % (8-40); MCH 32.7 pg (25.7-33.7); MCHC 34.7 g/dl (32.0-36.0); MEAN CELL VOLUME 94.2 fl (80-96); MEAN PLT VOLUME 7.1 fl (7.5-11.1); MONO % 5.3 % (3.8-10.2); NEUT % 61.5 % (42.8-82.8); PLATELET COUNT 301 10^3/uL (134-434); RBC 4.11 M/mm3 (3.60-5.2); RDW 12.8 % (11.6-15.6); WHITE BLOOD COUNT 7.5 K/mm3 (4.0-10.0)
[2022-03-13 18:00] LABS: PH,URINE 5.5 (5.0-8.0); URINE APPEARANCE CLEAR; URINE BILIRUBIN NEGATIVE (NEGATIVE); URINE COLOR YELLOW; URINE GLUCOSE (UA) NEGATIVE (NEGATIVE); URINE KETONE 1+ (NEGATIVE); URINE LEUK ESTERASE NEGATIVE (NEGATIVE); URINE NITRITE NEGATIVE (NEGATIVE); URINE PROTEIN NEGATIVE (NEGATIVE); URINE UROBILINOGEN 0.2 mg/dL (0.2-1.0)
[2022-03-13 18:26] LABS: CALCIUM 9.2 mg/dL (8.5-10.1)
[2022-03-13 18:27] LABS: ALBUMIN 3.5 g/dl (3.4-5.0); BLOOD UREA NITROGEN 11.2 mg/dL (7-18)
[2022-03-13 18:30] LABS: CREATININE 0.5 mg/dL (0.55-1.3)
[2022-03-13 18:32] LABS: BILIRUBIN,TOTAL 0.3 mg/dL (0.2-1); TOT PROT 7.2 g/dl (6.4-8.2)
== END 2022-03-13 20:38 | disposition home or self-care (01) ==
LOC: JER 14:21
DX: O26.891 Other specified pregnancy related conditions, first trimester (principal); Z3A.01 Less than 8 weeks gestation of pregnancy
CPT/HCPCS: 36415; 76817-TC; 80053; 81003; 84702; 85025; 86850; 86900; 86901; 87086; 87186; 99284-25

== ENCOUNTER 2023-10-12 15:09 | Emergency (ER) | payer OTHER ==
[2023-10-12 15:33] VITALS: BP 126/65; PULSE 62; RESP 20; TEMP 98.7; BMI 28.3
[2023-10-12] MEDS ORDERED: ACETAMINOPHEN 500 MG TABLET (FP) ONE (16:02)
[2023-10-12] MEDS: ACETAMINOPHEN 500 MG TABLET (FP) PO ONE (16:05)
[2023-10-12] MEDS ORDERED: oxyCODONE HCL 5 MG TABLET ONE (18:13)
[2023-10-12] MEDS: oxyCODONE HCL 5 MG TABLET PO ONE (18:14)
== END 2023-10-12 18:20 | disposition home or self-care (01) ==
LOC: JERFT 15:09
DX: M54.50 Low back pain, unspecified (principal); W19.XXXA Unspecified fall, initial encounter
CPT/HCPCS: 72220-TC-FY; 84703; 99284-25